=== PATIENT | male | born 1975 | race African-American/Black ===

== ENCOUNTER 2016-10-22 20:54 | Emergency (ER) | payer OTHER | END 2016-10-22 23:20 | disposition home or self-care (01) | LOC: D.ER 20:54 | DX: J02.9 Acute pharyngitis, unspecified (principal); I10 Essential (primary) hypertension ==

== ENCOUNTER 2016-11-10 03:12 | Emergency (ER) | payer OTHER | END 2016-11-10 04:25 | disposition home or self-care (01) | LOC: D.ER 03:12 | DX: I10 Essential (primary) hypertension (principal); F17.200 Nicotine dependence, unspecified, uncomplicated ==